=== PATIENT | female | born 1950 | race Caucasian/White ===

== ENCOUNTER 2017-03-06 06:25 | Day surgery (SDC) | payer MEDICARE, BC ==
[~2017-03-06] VITALS: Ht 171.4 cm; Wt 122.7 kg
[2017-03-06] VITALS (7 sets, daily range): BP systolic 115–195; BP diastolic 54–101; PULSE 67–83; RESP 16–20; TEMP 97.9–98.4; O2SAT 92–97
[~2017-03-06 06:25] MED LIST: DIOV160T60 PO; LEVO.1 PO; MULT1TAB46; TOPR50TA PO; TYLE500T; VITA20003 PO
[2017-03-06] MEDS ORDERED: METO100T9 PO (06:52)
[2017-03-06] MEDS ORDERED: VALS1TAB65 PO (06:52)
[2017-03-06] MEDS ORDERED: LEVO100T5 PO (06:52)
[2017-03-06] MEDS ORDERED: SODIUM CHLOR 0.9% 1000 ML IV SCH (07:00)
[2017-03-06] MEDS ORDERED: LIDOCAINE HCL 1% 20 ML VIAL ONE (07:14)
[2017-03-06] MEDS ORDERED: MIDAZOLAM HCL 2 MG/2 ML VIAL ONE (07:54)
--- NOTE | 2017-03-06 08:40 | PD.RAD ---
Post CT Procedure Prog Note Pre Procedure Diagnosis: (1) Elevated liver enzymes Post Procedure Diagnosis: (1) Elevated liver enzymes Procedure Date: Mar 06, 2017 Supervising Radiologist: Alonzo Murphy Anesthesia: Conscious Sedation Plan of Activity Patient to Unit: [facility] Patient Condition: Good See PACS Report for procedural detail/treatment Alonzo Murphy MD Mar 06, 2017 08:39
[2017-03-06] MEDS ORDERED: HYDROmorphone HCL 2 MG TAB PO PRN (08:45)
--- NOTE | 2017-03-06 09:08 | RADRPT ---
EXAM DATE/TIME: 03/06/2017 08:12 [place] COMPARISON: No previous studies available for comparison. INDICATIONS : Evaluate for liver function. SEDATION TIME: 30 minutes BIOPSY SITE: liver MEDICATION(S): 1.) 2 mg midazolam (Versed) IV 2.) 150 mcg fentanyl (Sublimaze) IV DEVICE(S): 1.) 18 gauge Temno core biopsy needle MEDICAL HISTORY : Hepatomegaly. SURGICAL HISTORY : None. ENCOUNTER: Initial ACUITY: 1 day PAIN SCORE: 0/10 LOCATION: liver A total of five core specimen(s) were obtained and sent to the laboratory for pathologic evaluation. PROCEDURE: 1. CT guided liver biopsy. 2. Conscious sedation with continuous EKG and oximetry monitoring. 3. EKG and oximetry remained stable throughout the procedure. Prior to the procedure informed consent was obtained. Any appropriate prior imaging studies were rev iewed. Using automated exposure control and adjustment of the mA and/or kV according to patient size, radiat ion dose was kept as low as reasonably achievable to obtain optimal diagnostic quality images. DICOM format image data is available electronically for review and comparison. The site was prepped in a sterile fashion. Full sterile technique was used, including cap, mask, mariann rile gloves and gown and a large sterile sheet. Hand hygiene and 2% chlorhexidine and/or betadine/al cohol prep was utilized per protocol for cutaneous antisepsis. The skin and subcutaneous tissues wer e infiltrated with local anesthetic solution. With CT guidance the previously identified target was localized. Biopsy was performed using the presc ribed needle as above. Adequate hemostasis was obtained with compression at the puncture site. Follow-up CT scan reveals no hemorrhage. The patient tolerated the procedure well and there were no complications. The patient was returned to the Radiology Outpatient Unit in stable condition. CONCLUSION: Uncomplicated CT guided liver biopsy. Alonzo Murphy MD on March 06, 2017 at 9:06 Board Certified Radiologist. This report was verified electronically.
== END 2017-03-06 14:22 | disposition home or self-care (01) ==
LOC: HRAD 06:25 → HRIP 06:29 → HRAD 14:22
DX: R74.8 Abnormal levels of other serum enzymes (principal); I10 Essential (primary) hypertension; E03.9 Hypothyroidism, unspecified
CPT/HCPCS: 47000; 77012; 85730; 88307; 88313; J2250; J3010; J7030